=== PATIENT | female | born 1965 | race Two or more races ===

== ENCOUNTER 2016-10-11 18:20 | Emergency (ER) | payer BC ==
[~2016-10-11] VITALS: Ht 157.5 cm; Wt 57.8 kg
[2016-10-11 19:15] VITALS: BP 108/69
== END 2016-10-11 19:16 | disposition home or self-care (01) ==
LOC: ED 18:20
DX: S16.1XXA Strain of muscle, fascia and tendon at neck level, initial encounter (principal); S29.012A Strain of muscle and tendon of back wall of thorax, initial encounter; V49.9XXA Car occupant (driver) (passenger) injured in unspecified traffic accident, initial encounter; Y93.89 Activity, other specified; Y99.8 Other external cause status; Y92.89 Other specified places as the place of occurrence of the external cause

== ENCOUNTER 2017-09-24 19:20 | Emergency (ER) | payer BC ==
[~2017-09-24] VITALS: Ht 157.5 cm; Wt 51.7 kg
[2017-09-24 19:27] VITALS: Ht 157.5 cm; Wt 51.7 kg
[2017-09-24 23:43] VITALS: BP 115/71
== END 2017-09-24 23:35 | disposition home or self-care (01) ==
LOC: ED 19:20
DX: S29.012A Strain of muscle and tendon of back wall of thorax, initial encounter (principal); V89.2XXA Person injured in unspecified motor-vehicle accident, traffic, initial encounter; Y93.73 Activity, racquet and hand sports; Y92.488 Other paved roadways as the place of occurrence of the external cause; Y99.8 Other external cause status
CPT/HCPCS: 72072